=== PATIENT | male | born 1925 | race Caucasian/White ===

== ENCOUNTER → 2016-12-26 | Outpatient (CLI) | payer MEDICARE, BC ==
[2016-12-26 17:48] LABS: ANION GAP 9 (5-19); BLOOD UREA NITROGEN 19 mg/dL (7-20); CALCIUM 9.1 mg/dL (8.4-10.2); CARBON DIOXIDE 29 mmol/L (22-30); CHLORIDE 96 mmol/L (98-107); CREATININE RESULT 1.08 mg/dL (0.52-1.25); GLUCOSE 84 mg/dL (75-110); POTASSIUM 5.5 mmol/L (3.6-5.0)
== END ==
LOC: OD 16:21
PROVIDERS: ATTEND Family Medicine
DX: E87.5 Hyperkalemia (principal)
CPT/HCPCS: 36415; 80048

== ENCOUNTER 2017-02-11 18:57 | Inpatient (IN) | payer MEDICARE, BC ==
--- NOTE | 2017-02-11 20:24 | ER Document Report ---
ED Fall - General Mode of Arrival: Wheelchair Information source: Patient, Relative - Daughter and son TRAVEL OUTSIDE OF THE [place] IN LAST 30 DAYS: No - HPI Occurred: Just prior to arrival - Refer to HPI notes Context: Fell from standing <MARIA ELENA WHITE - Last Filed: 02/11/17 23:54> <JOVANNY COOK - Last Filed: 02/12/17 03:25> - General Chief Complaint: Headache Stated Complaint: WELLNESS CHECK Time Seen by Provider: 02/11/17 19:50 Notes: Patient is an 89-year-old male presenting to the emergency department for a headache. Patient did see his primary care physician Dr. Hopper today was going to order an outpatient CT of the head, gave him a new medication for his constipation, and wanted him to see his shipboard intelligence analyst Dr. Martinez. Patient has had some gradual chronic confusion and disorientation over the last several months. Patient has been taking Metamucil and MiraLAX for his bowels. Patient did feel sick and nauseous on Saturday and on Saturday he had a fall in his house. Patient was starting to walk up a ramp and he fell backwards. Patient states he does not remember how he fell but he does remember falling and he is able to pick himself up from the fall and walk into the house. Patient had some swelling to his neck at this time and [facility] as well as a CT of his neck on Saturday. Daughter and son state the patient did not receive any type of head CT or other imaging. Daughter is concerned the patient has been very fatigued as well lately and also states that his PCP was concerned for possible dehydration. Patient complains of headache since his fall as well as some nausea. Patient is on Plavix for 2 previous stents. Patient has no known drug allergies. (MARIA ELENA WHITE) - Related data Allergies/Adverse Reactions: No Known Allergies Allergy (Verified 09/07/14 17:33) Past Medical History - General Information source: Patient - Social History Smoking Status: Unknown if Ever Smoked Family History: None Patient has suicidal ideation: No Patient has homicidal ideation: No - Past Medical History Cardiac Medical History: Reports: Hx Hypertension Neurological Medical History: Reports: Hx Cerebrovascular Accident - MEMORY ISSUES, Hx Migraine GI Medical History: Reports: Hx Gastroesophageal Reflux Disease, Hx Ulcer - YEARS AGO Surgical Hx: Negative <MARIA ELENA WHITE - Last Filed: 02/11/17 23:54> Review of Systems - Review of Systems Constitutional: See HPI, Malaise, Weakness EENT: No symptoms reported Cardiovascular: No symptoms reported Respiratory: No symptoms reported Gastrointestinal: No symptoms reported Genitourinary: No symptoms reported Male Genitourinary: No symptoms reported Musculoskeletal: See HPI Skin: No symptoms reported Hematologic/Lymphatic: No symptoms reported Neurological/Psychological: See HPI, Confusion, Weakness, Headaches -: Yes All other systems reviewed and negative <MARIA ELENA WHITE - Last Filed: 02/11/17 23:54> Physical Exam - Vital signs Interpretation: Hypertensive <MARIA ELENA WHITE - Last Filed: 02/11/17 23:54> <JOVANNY COOK - Last Filed: 02/12/17 03:25> - Vital signs Vitals: Temp Pulse BP Pulse Ox 97.6 F 62 177/77 H 97 02/11/17 19:07 02/11/17 19:07 02/11/17 19:07 02/11/17 19:07 - Notes Notes: GENERAL: Alert, interacts well. Mild distress. HEAD: Normocephalic, atraumatic. EYES: Appear normal. Pupils equal, round, and reactive to light. ENT: Moist mucus membranes, tongue midline. NECK: Full range of motion. Supple. Trachea midline. LUNGS: Clear to auscultation bilaterally, no wheezes, rales, or rhonchi. No respiratory distress. HEART: Regular rate and rhythm. No murmurs, gallops, or rubs. ABDOMEN: Soft, non-tender. Non-distended. Normal bowel sounds. EXTREMITIES: Moves all 4 extremities spontaneously. Normal strength. No edema. NEUROLOGICAL: Alert and oriented x3. Normal speech. No focal neurological deficits. GSC 15. PSYCH: Normal affect, normal mood. SKIN: Warm, dry, normal turgor. No rashes or lesions noted. (MARIA ELENA WHITE) Course - Laboratory Result Diagrams: 02/11/17 21:45 02/11/17 21:45 - Consults Dr. Hurst Time consulted: 22:40 <MARIA ELENA WHITE - Last Filed: 02/11/17 23:54> - Laboratory Result Diagrams: 02/11/17 21:45 02/12/17 02:05 <JOVANNY COOK - Last Filed: 02/12/17 03:25> - Re-evaluation Re-evalutation: 02/11/17 23:21 Presents emergency department his is also patient and his entire family is here including his daughter and sons who are their caregivers at home. That he fell last week walking up the 's wheelchair ramp backwards. They went to [place] or so where they did a x-ray of the cervical spine on a follow-up on Saturday and did a CT of the cervical spine which did not show any acute fractures. The family did not understand why he has had a headache ever since why they did not CT his head. Patient has progressive confusion sounds like dementia over the last year and a half. He states that he is often forgetful and that has not changed recently. In addition to that they state that chronic headaches and takes Fioricet for that. They said he has been eating and drinking very well at home for quite some time. On examination he is awake alert he has a GCS of 15 no neurological deficits or external signs of trauma to the head mucous murmurs are dry heaves thin appearing. CT of the head is negative electrolyte abnormality serum sodium is 120 last time he is here is 35. He is given IV fluids family states intermittent dizziness increased confusion according to them given the fact the serum sodium and chloride being low IV fluids dehydration and hyponatremia and admission to the hospital. 02/12/17 00:00 (JOVANNY COOK) - Vital Signs Vital signs: Temp Pulse Resp BP Pulse Ox 97.6 F 63 150/70 H 99 02/11/17 19:07 02/12/17 00:51 02/12/17 01:01 02/12/17 00:51 - Laboratory Laboratory results interpreted by me: 02/11/17 02/11/17 02/11/17 21:45 21:45 21:45 RBC 3.55 L Hgb 11.7 L Hct 32.8 L Monocytes % 13.7 H Sodium 120.7 L* Chloride 89 L Serum Osmolality Alkaline Phosphatase 132 H Total Protein 6.1 L Albumin 3.4 L Urine Osmolality 02/11/17 02/12/17 21:45 01:00 RBC Hgb Hct Monocytes % Sodium Chloride Serum Osmolality 264 L Alkaline Phosphatase Total Protein Albumin Urine Osmolality 129 L - Consults Dr. Hurst Reason for consultation: 02/11/17 22:[address] Hurst to discuss patient, he will call back. 02/11/17 23:[address] Hurst at this time, discussed patient with him, he will accept the patient for admission. (MARIA ELENA WHITE) Critical Care Note - Critical Care Note Total time excluding time spent on procedures (mins): 55 <JOVANNY COOK - Last Filed: 02/12/17 03:25> Discharge <MARIA ELENA WHITE - Last Filed: 02/11/17 23:54> - Discharge Admitting Provider: Hospitalist Unit Admitted: Telemetry <JOVANNY COOK - Last Filed: 02/12/17 03:25> - Discharge Clinical Impression: Acute hyponatremia, report of altered mental status, dehydration with poor appetite Condition: Stable Disposition: ADMITTED OBSERVATION Scribe Attestation: 02/11/17 23:41 I personally performed the services described in the documentation reviewed the documentation recorded by my scribe in my presence and it accurately and completely records my words and actions (JOVANNY COOK) Scribe Documentation - Scribe Written by Scribe:: Latha Lu 02/11/2017 [id number] acting as scribe for :: Trevon <MARIA ELENA WHITE - Last Filed: 02/11/17 23:54>
--- NOTE | 2017-02-11 21:15 | RADIOLOGY REPORT (SQ) ---
EXAM DESCRIPTION: CT HEAD WITHOUT COMPLETED DATE/TIME: 02/11/2017 8:52 pm REASON FOR STUDY: fall last week headache COMPARISON: August 2014 TECHNIQUE: Axial images acquired through the brain without intravenous contrast. Images reviewed wi th bone, brain and subdural windows. Images stored on PACS. All CT scanners at this facility use dose modulation, iterative reconstruction, and/or weight based d osing when appropriate to reduce radiation dose to as low as reasonably achievable (ALARA). [facility]: Dose Right [facility]: CareDose [facility]: Dose Right [facility]: Teradose 4D [facility]: Smart [employer] RADIATION DOSE: Up-to-date CT equipment and radiation dose reduction techniques were employed. CTDIv ol: 49.0 mGy. DLP: 783 mGy-cm.mGy. LIMITATIONS: None. FINDINGS: VENTRICLES: Prominent. CEREBRUM: No masses. No hemorrhage. No midline shift. Areas of low density in the white matter mos t likely due to chronic micro-vascular ischemic change. No evidence for acute infarction. CEREBELLUM: No masses. No hemorrhage. No alteration of density. No evidence for acute infarction. EXTRAAXIAL SPACES: Age-related involutional change. No fluid collections. No masses. ORBITS AND GLOBE: No intra- or extraconal masses. Normal contour of globe without masses. CALVARIUM: No fracture. PARANASAL SINUSES: No fluid or mucosal thickening. SOFT TISSUES: No mass or hematoma. OTHER: No other significant finding. IMPRESSION: CHRONIC CHANGES OF ATROPHY AND MICROVASCULAR ISCHEMIA. NO ACUTE PROCESS. TECHNICAL DOCUMENTATION: JOB ID: [id number] Quality ID # [id number]: Final reports with documentation of one or more dose reduction techniques (e.g., Au tomated exposure control, adjustment of the mA and/or kV according to patient size, use of iterative reconstruction technique) 2010 [employer]- All Rights Reserved
[2017-02-11 21:59] LABS: ABSOLUTE EOSINOPHILS # (AUTO) 0.3 10^3/uL (0.0-0.6); ABSOLUTE LYMPHOCYTES (AUTO) 0.9 10^3/uL (0.5-4.7); ABSOLUTE MONOCYTES (AUTO) 0.8 10^3/uL (0.1-1.4); ABSOLUTE NEUT (AUTO) 3.8 10^3/uL (1.7-8.2); BASOPHILS % (AUTO) 0.8 % (0-2); HEMATOCRIT 32.8 % (37.9-51.0); HEMOGLOBIN 11.7 g/dL (13.5-17.0); HGB HCT DIFFERENCE 2.3; LYMPHOCYTES % (AUTO) 15.7 % (13-45); MEAN CORPUSCULAR HEMOGLOBIN 32.8 pg (27.0-33.4); MEAN CORPUSCULAR HGB CONC 35.6 g/dL (32.0-36.0); MEAN CORPUSCULAR VOLUME 92 fl (80-97); MONOCYTES % (AUTO) 13.7 % (3-13); RED BLOOD COUNT 3.55 10^6/uL (4.35-5.55); RED CELL DISTRIBUTION WIDTH 13.6 % (11.5-14.0); SEGMENTED NEUTROPHILS % (AUTO) 64.8 % (42-78); WHITE BLOOD COUNT 5.8 10^3/uL (4.0-10.5)
[2017-02-11 22:11] LABS: BLOOD UREA NITROGEN 12 mg/dL (7-20); CALCIUM 8.4 mg/dL (8.4-10.2); CARBON DIOXIDE 24 mmol/L (22-30); CHLORIDE 89 mmol/L (98-107); CREATININE RESULT 0.87 mg/dL (0.52-1.25); GLUCOSE 109 mg/dL (75-110); POTASSIUM 4.2 mmol/L (3.6-5.0)
[2017-02-11 22:15] LABS: ANION GAP 8 (5-19)
[2017-02-11 22:19] LABS: SODIUM 120.7 mmol/L (137-145)
[2017-02-11] MEDS ORDERED: NORMAL SALINE 1000 ML 1,000 ML IV ONE ×2 (22:28→23:38)
[2017-02-11] MEDS ORDERED: NORMAL SALINE 1000 ML 1,000 ML IV PRN (23:40)
[2017-02-12 00:27] LABS: ADD ON TESTING BLD IN LAB ACKNOWLEDGE
[2017-02-12 00:43] LABS: ALANINE AMINOTRANSFERASE 22 U/L (21-72); ALBUMIN 3.4 g/dL (3.5-5.0); ALKALINE PHOSPHATASE 132 U/L (38-126); ASPARTATE AMINO TRANSFERASE 24 U/L (17-59); BILIRUBIN,DIRECT 0.3 mg/dL (0.0-0.4); BILIRUBIN,TOTAL 0.5 mg/dL (0.2-1.3); TOTAL PROTEIN 6.1 g/dL (6.3-8.2)
[2017-02-12] MEDS ORDERED: PROMETHAZINE HCL 25 MG TABLET PO PRN (01:30)
[2017-02-12] MEDS ORDERED: MAGNESIUM HYDROXIDE SUSP 30 ML UDCUP PO PRN (01:30)
[2017-02-12 01:38] LABS: APPEARANCE,URINE CLEAR; BILIRUBIN,URINE NEGATIVE (NEGATIVE); GLUCOSE, URINE NEGATIVE (NEGATIVE); KETONES,URINE NEGATIVE (NEGATIVE); LEUKOCYTE ESTERASE,URINE NEGATIVE (NEGATIVE); NITRITE,URINE NEGATIVE (NEGATIVE); PROTEIN,URINE NEGATIVE (NEGATIVE); URINE SPECIFIC GRAVITY 1.002; UROBILINOGEN,URINE NEGATIVE mg/dL (<2.0)
--- NOTE | 2017-02-12 02:10 | PDOC H&P ---
History of Present Illness Admission Date/PCP: 02/11/17 23:52 SHRADDHA HO DO Patient complains of: Nausea, headache History of Present Illness: SHARON FUNEZ is a 89 year old male, with known long-standing migraine headaches, for which he reportedly takes Fioricet, along with known coronary artery disease, having suffered an MS in 2015, with stent implant 2 at that time, mild reflux, prostatic hypertrophy, hyperlipidemia, mild anxiety and depression, without suicidal or homicidal ideation, occasional dysphagia to both pills and food, with primary care provider aware of same, along with history of skin cancer, who presents to the emergency room for evaluation of above complaints. Fell backwards last Saturday in his house. Was seen at a medical facility afterwards, with CT scan of his neck showing no obvious injury. Since that time, he has had persistence of a headache, along with nausea but no vomiting. No fever or chills. Chronic constipation. Fair appetite. Occasional chest pain, which is been ongoing apparently for some time now. Brief episode earlier on 11 February. Chest pain-free at present. Recent history also remarkable for gradually progressive chronic confusion and disorientation. No use of tobacco, alcohol, or illicit drugs. Prior stroke which is left him with "memory issues." No seizure history. Patient has been discussed with emergency room physician who evaluated the patient. Patient is oriented to the fact that he is in our hospital, stating he is here because of nausea and headache, was not aware of the date; kept trying to say he was in the 1900s. He is able to provide little history in terms of acute or chronic events, review of systems, personal habits, family history, etc. 2 sons are present at his side, with his approval, and are helpful and informative. old inpatient records are reviewed. Hospitalized on our service the third through November with transfer diagnoses including non-ST elevation MS. Subsequently received 2 stents. Transfer summary reviewed. Admitted to our service September 072014 for a stroke involving the left parietal and occipital lobes. History and physical reviewed.. Dictation via voice recognition software. Laboratory results are listed in [employer] and are reviewed. X-ray summary results are listed below, with full report(s) reviewed. . EKG pending. Social history/personal habits: . Lives with . Retired. Close family follow-up. No use of alcohol tobacco or illicit drugs. No known drug allergies. Home medications initially autopopulated into [employer] may not accurately reflect patient's true medications, dosages, and/or frequencies. environmental field technician to reconcile medications. Unfortunately, patient not able to provide any information related to medications/dosages/frequencies. REVIEW OF SYSTEMS: Constitutional: No fever or chills. Eyes: Wears glasses. ENT: See history and present illness. Partial hearing loss. Pulmonary: No current complaints. Cardiovascular: See history and present illness. Gastrointestinal: See history and present illness. Skin: No current complaints, including rashes. Hematologic: Easy bruising. Neurologic: See history and present illness. Musculoskeletal: Joint pain from arthritis. Psychiatric: Anxiety and depression. Denies suicidal or homicidal ideation. Endocrine: No current complaints, including polyuria. Genitourinary: No current complaints, including dysuria. PHYSICAL EXAMINATION: Neither height nor weight are recorded on the chart. Temperature 97.6. Respirations are 14 and unlabored. 99% saturation on room air. Pulse 66 and regular. Blood pressure 150/70. Thin otherwise well-developed elderly male appearing approximately his stated age. Appears somewhat fatigued. Occasionally complaining of headache. Cooperative. 2 sons are present at his side; patient approves. Skin is warm and dry. No grossly obvious evidence of rash in areas of skin examined. No subcutaneous nodules palpated. ENT: Hearing grossly normal to normal conversation. Tongue midline on protrusion pink and moist. Eyes: No scleral icterus. Pupils equal and reactive to light at 4 mm. [place] conjunctivae. No raccoon eyes. Neck is supple and nontender to gentle active range of motion and palpation. Midline trachea. No palpable thyroid nodule mass enlargement or tenderness. Lymphatic: No palpable cervical or clavicular nodes. Neck and lymphatic exams limited by patient body habitus. Psychiatric: Intermittently somewhat confused answers. Oriented to location and why here. Lungs: Auscultation reveals clear and equal breath sounds bilaterally. No use of accessory respiratory muscles. Cardiovascular: Heart regular rate and rhythm, without gallop murmur or rub. No carotid or abdominal aortic bruits. No ankle or pedal edema. Faintly palpable dorsalis pedis pulses. Abdomen:soft nontender with positive bowel sounds. No upper abdominal mass or organomegaly palpated. Extremities: Hands and feet are warm and dry. No calf tenderness to compression. No grossly obvious visual evidence of calf swelling. Gentle manipulation of upper and lower extremities fails to reveal any obvious evidence of injury or instability to involved major joints. Neurologic: Cranial Nerves II through XII are grossly intact. Light touch intact at face, upper and lower extremities. Motor function of major muscle groups upper and lower extremities 5 over 5 and symmetric. Patellar reflexes absent. Absent Babinski. No nystagmus. Past Medical History Cardiac Medical History: Reports: Coronary Artery Disease, Myocardial Infarction , Hyperlipidema, Hypertension Denies: Atrial Fibrillation, DVT, Pulmonary Embolism Pulmonary Medical History: Denies: Asthma, Chronic Obstructive Pulmonary Disease (COPD), Sleep Apnea EENT Medical History: Reports: Eyes - Glasses, Ears - Partial hearing loss, Other - Intermittent dysphagia to pills and food; primary care provider aware, according to sons. Neurological Medical History: Reports: Ischemic CVA - Subsequent memory issues, Migraine Denies: Hemorrhagic CVA, Seizures Endocrine Medical History: Denies: Diabetes Mellitus Type 1, Diabetes Mellitus Type 2, Hyperthyroidism, Hypothyroidism Renal/ Medical History: Reports: Other - Prostatic hypertrophy Malignancy Medical History: Reports: Skin Cancer GI Medical History: Reports: Gastroesophageal Reflux Disease Denies: Cirrhosis, Hepatitis, Hiatal Hernia, Peptic Ulcer Disease Musculoskeltal Medical History: Reports: Arthritis Psychiatric Medical History: Reports: Depression, General Anxiety Disorder Denies: Alcohol Dependency, Substance Abuse, Tobacco Dependency Hematology: Reports: Anemia, Other - Easy bruising Infectious Medical History: Denies: Hepatitis B, Hepatitis C Past Surgical History Past Surgical History: Reports: Coronary Stent - 22014, Other - Hemorrhoidectomy Social History Information Source: Patient, Relative - 2 sons, Emergency Med Personnel, [facility] Records Lives with: Spouse/Significant other Smoking Status: Unknown if Ever Smoked Frequency of Alcohol Use: None Hx Recreational Drug Use: No Drugs: None Hx Prescription Drug Abuse: No - Advance Directive Resuscitation Status: Do Not Resuscitate Surrogate healthcare decision maker:: Children Family History Family History: None Parental Family History Reviewed: Yes - Father of stroke, mother with Alzheimer's Children Family History Reviewed: Yes - 2 children with cancer Sibling(s) Family History Reviewed.: Yes - Medication/Allergy Home Medications: Atorvastatin Calcium 40 mg PO QHS 02/12/17 Butalb/Acetaminophen/Caffeine [Dhlckm-Qyfzbzci-Byql 50-325-40] 1 each PO Q6 07/31 Clobetasol Propionate 1 applic TOP ASDIR PRN 02/12/17 Clopidogrel Bisulfate [Clopidogrel] 75 mg PO DAILY 02/12/17 Omeprazole 40 mg PO DAILY 02/12/17 Amlodipine Besylate [Norvasc 5 mg Tablet] 5 mg PO DAILY #30 tablet 02/15/17 Megestrol Acetate [Megace Dori 400 mg/10 ml Udcup] 400 mg PO DAILY #300 ml 02/15 Mirtazapine [Remeron 15 mg Tablet] 7.5 mg PO QHS #30 tablet 02/15/17 Allergies/Adverse Reactions: No Known Allergies Allergy (Verified 09/07/14 17:33) Physical Exam Vital Signs: Temp Pulse Resp BP Pulse Ox 97.6 F 63 150/70 H 99 02/11/17 19:07 02/12/17 00:51 02/12/17 01:01 02/12/17 00:51 Results Impressions: Head CT 02/11/17 20:16 IMPRESSION: CHRONIC CHANGES OF ATROPHY AND MICROVASCULAR ISCHEMIA. NO ACUTE PROCESS. Assessment & Plan - Diagnosis (1) DNR (do not resuscitate) Is this a current diagnosis for this admission?: YesPlan: Implications of DO NOT RESUSCITATE/DO NOT INTUBATE status discussed with patient and 2 sons. Discussed in layperson's terms. Implications understood. Patient and 2 sons are the health care decision makers. Sons' conversations are lucid and appropriate. Patient and 2 sons desire DO NOT RESUSCITATE/DO NOT INTUBATE status, as has been the case in the past, including at the time of his transfer for non-STEMI in 2014. Will honor their wishes. (2) Chest pain Qualifiers: Chest pain type: unspecified Qualified Code(s): R07.9 - Chest pain, unspecified Is this a current diagnosis for this admission?: YesPlan: Intermittent episodes for some time now. Serial troponins. Repeat EKG. No outward evidence of acute coronary syndrome. (3) Hyponatremia Is this a current diagnosis for this admission?: YesPlan: Uncertain cause. Normal saline at 75/h. Serial chemistry. Serum osmolarity. Urine sodium and osmolarity. I have strongly encouraged patient not to get out of bed without notifying staff , to avoid a fall with injury. Knee high SCDs for DVT prophylaxis, along with subcutaneous heparin. 2 sons understand patient's underlying confusion may very well worsen while he is in the hospital. Suspect his hyponatremia may be contributing to this. Impression and plans were discussed with patient and 2 sons, all of whom concur. Time spent in evaluation and management of patient: 72 minutes. (4) Confusion Is this a current diagnosis for this admission?: Yes (5) Migraine Qualifiers: Migraine type: unspecified Status migrainosus presence: without status migrainosus Intractability: not intractable Qualified Code(s): G43.909 - Migraine, unspecified, not intractable, without status migrainosus Is this a current diagnosis for this admission?: YesPlan: As needed pain medication. (6) BPH (benign prostatic hyperplasia) Qualifiers: Lower urinary tract symptom presence: unspecified whether lower urinary tract symptoms present Qualified Code(s): N40.0 - Benign prostatic hyperplasia without lower urinary tract symptoms Is this a current diagnosis for this admission?: YesPlan: Resume home medications as appropriate once these have been determined and reviewed. (7) Essential hypertension Is this a current diagnosis for this admission?: YesPlan: Resume home medications as appropriate once these have been determined and reviewed. (8) HLD (hyperlipidemia) Qualifiers: Hyperlipidemia type: unspecified Qualified Code(s): E78.5 - Hyperlipidemia, unspecified Is this a current diagnosis for this admission?: YesPlan: Resume home medications as appropriate once these have been determined and reviewed. (9) Stented coronary artery Is this a current diagnosis for this admission?: YesPlan: Resume home medications as appropriate once these have been determined and reviewed. - Time Time Spent: 50 to 70 Minutes Anticipated discharge: Home Within: within 48 hours
[2017-02-12 02:30] LABS: ANION GAP 7 (5-19); BLOOD UREA NITROGEN 12 mg/dL (7-20); CARBON DIOXIDE 25 mmol/L (22-30); CHLORIDE 95 mmol/L (98-107); GLUCOSE 85 mg/dL (75-110); POTASSIUM 4.1 mmol/L (3.6-5.0); SODIUM 126.9 mmol/L (137-145)
[2017-02-12] MEDS: OXYCODONE HCL IR 5 MG TABLET PO PRN (04:11)
[2017-02-12] MEDS: DEXTROSE 5%-WATER 1000 ML 1,000 ML IV PRN ×2 (04:12→17:42)
[2017-02-12 07:06] LABS: ANION GAP 8 (5-19); BLOOD UREA NITROGEN 10 mg/dL (7-20); CALCIUM 8.5 mg/dL (8.4-10.2); CARBON DIOXIDE 25 mmol/L (22-30); CHLORIDE 96 mmol/L (98-107); CREATININE RESULT 0.86 mg/dL (0.52-1.25); GLUCOSE 98 mg/dL (75-110); POTASSIUM 4.2 mmol/L (3.6-5.0); SODIUM 128.9 mmol/L (137-145)
--- NOTE | 2017-02-12 08:09 | EKG REPORT ---
SEVERITY:- OTHERWISE NORMAL ECG - SINUS RHYTHM VENTRICULAR PREMATURE COMPLEX LOW VOLTAGE IN FRONTAL LEADS : Confirmed by: Solitario Varner MD 12-Feb-2017 08:09:01
--- NOTE | 2017-02-12 08:09 | EKG REPORT ---
SEVERITY:- BORDERLINE ECG - SINUS RHYTHM BORDERLINE T ABNORMALITIES, ANT-LAT LEADS : Confirmed by: Solitario Varner MD 12-Feb-2017 08:08:50
--- NOTE | 2017-02-12 10:11 | Physician Advisory Note ---
Physician Advisor ProgressNote .: Pursuant to the plan for [facility], I have reviewed the medical record for this patient. Physician Advisor Statement: 1. Please document explicitly the reason(s) pt can't be sent home later today. 2. Likely reason for the acute hyponatremia? Status: This Medicare pt was brought in as Outpt Obs for hyponatremia. Na 120.7, w/baseline Na 134 on 12/26/16. (+)AMS/weakness associated with this severe hyponatremia. After 2L IVF in ED, then 75ml/hr, w/serial BMPs, Na up to 128.9 so far thi AM - still not yet back to baseline. Giving IVF slowly after ED given given 2L relatively quickly, attending wanting to avoid producing brain swelling from correcting Na too quickly. Attending expects pt to require at least a 2nd MN in hospital with continued close monitoring of NA & continued cautious IVF. Attending has ordered repeat labs through 8/2 AM and changed status to Inpt. Appears appropriate for Inpatient status. Thanks! CK
--- NOTE | 2017-02-12 10:38 | PROGRESS NOTE E ---
Progress Note NAME: SHARON FUNEZ : 1925 AGE: 89Y DATE: 02/12/2017 ROOM: 428 SUBJECTIVE: The patient is sitting in bed. Had a meeting with the patient's son who was present at the bedside and active in the patient's care. Apparently the patient has had an ever deescalating appetite. Discussed risks and benefits of appetite stimulants and they have elected to proceed with this. The patient's sodium has improved. His confusion also has improved but he still is not at baseline according to the son. The patient has been afebrile. His blood pressures have been in a decent range and the patient does not voice any other concerns at this time. REVIEW OF SYSTEMS: Rest of the review of systems negative. MEDICATIONS: Have been reviewed. OBJECTIVE: GENERAL: The patient is an 89-year-old male who is awake, alert, and oriented to person, place, time, and situation. He is verbal, conversational, and does not appear to be in acute distress. VITAL SIGNS: Temperature 98.2, pulse 55, respirations 16, blood pressure 158/70, oxygen saturation is 100% on room air. SKIN: Warm and dry. No rash. Not diaphoretic. HEENT: Pupils equal, round, reactive to light and accommodation. Conjunctivae are pink. No JVP. CARDIOVASCULAR: Heart is regular with no murmur or rub. CHEST: Clear, symmetrical, unlabored. ABDOMEN: Soft, nontender, nondistended. BACK: No CVA tenderness or sacral edema. EXTREMITIES: No clubbing, cyanosis, edema. PSYCHIATRIC: Flat affect. DIAGNOSTICS: Lab values are as follows: Hematology obtained on 02/11/2017: WBCs are 5.8, hemoglobin is 11.7, hematocrit is 32.8, platelet count is 182,000. Chemistry obtained on 02/12/2017: Sodium is 128, potassium is 4.2, chloride is 96, carbon dioxide is 25, BUN 10, creatinine is 0.86, glucose 98, calcium is 8.5, troponin is 0.013. IMPRESSION AND PLAN: 1. HYPONATREMIA. Uncertain of exact etiology of this. It does appear that the patient does have hypovolemic hyponatremia given from poor p.o. intake. The patient is not on any known significant offending agents. Repeat sodium is pending. Will adjust IV fluids accordingly and encourage p.o. intake. 2. POOR APPETITE. Have discussed risks versus benefits with the patient and family. Will add Remeron as well as Megace and follow. 3. ANEMIA MOST LIKELY IRON DEFICIENCY FROM POOR P.O. INTAKE. Overall hemoglobin is stable. Can defer workup to an outpatient setting. 4. HYPERTENSION. Patient's blood pressures are just slightly elevated but will continue to hold the patient's home blood pressure medications in an effort to give us some blood pressure to work with for now. 5. DVT PROPHYLAXIS. Will continue subcutaneous heparin. DISPOSITION: The patient is a DO NOT RESUSCITATE/DO NOT INTUBATE. Pending patient's symptomatology and diagnostic findings, will reevaluate in the a.m. The patient is inpatient. Given the patient's hyponatremia and need for volume resuscitation, the patient's expected length of stay would surpass 2 midnights. Time spent on this followup including assessment, plan, physical examination, patient education, and family meeting at the bedside is 35 minutes. DICTATING PHYSICIAN: GARY MILLS NP [id number] PHY#: [id number] ID: [id number] JOB#: [id number] ACCT: [id number] cc: >
[2017-02-12 11:09] LABS: ANION GAP 7 (5-19); BLOOD UREA NITROGEN 9 mg/dL (7-20); CALCIUM 8.5 mg/dL (8.4-10.2); CARBON DIOXIDE 26 mmol/L (22-30); CHLORIDE 96 mmol/L (98-107); CREATININE RESULT 0.93 mg/dL (0.52-1.25); GLUCOSE 72 mg/dL (75-110); POTASSIUM 3.9 mmol/L (3.6-5.0)
[2017-02-12] MEDS: HEPARIN SOD (PORCINE) 5,000 UNIT/ML 1 ML SYRINGE SUBCUT SCH ×2 (11:51→21:32)
[2017-02-12] MEDS: MEGESTROL ACETATE SUSP 400 MG/10 ML UDCUP PO SCH (11:51)
[2017-02-12] MEDS: BUTALB/ACETAMINOPHEN/CAFFEINE 1 TAB EACH PO SCH ×2 (11:52→18:19)
[2017-02-12] MEDS: DOCUSATE SODIUM 100 MG CAPSULE PO SCH ×2 (11:52→18:19)
[2017-02-12 14:31] LABS: ANION GAP 8 (5-19); BLOOD UREA NITROGEN 11 mg/dL (7-20); CALCIUM 8.6 mg/dL (8.4-10.2); CARBON DIOXIDE 24 mmol/L (22-30); CHLORIDE 95 mmol/L (98-107); CREATININE RESULT 0.83 mg/dL (0.52-1.25); GLUCOSE 101 mg/dL (75-110); POTASSIUM 4.7 mmol/L (3.6-5.0); SODIUM 126.6 mmol/L (137-145)
[2017-02-12] MEDS: ONDANSETRON 4 MG TAB.RAPDIS PO PRN (17:41)
[2017-02-12] MEDS: MIRTAZAPINE 15 MG TABLET PO SCH (21:32)
[2017-02-12] MEDS: ATORVASTATIN CALCIUM 40 MG TABLET PO SCH (21:32)
[2017-02-13] MEDS: ACETAMINOPHEN 325 MG TABLET PO PRN ×2 (01:05→16:29)
[2017-02-13] MEDS: BUTALB/ACETAMINOPHEN/CAFFEINE 1 TAB EACH PO SCH ×5 (01:06→22:01)
[2017-02-13 05:08] LABS: ANION GAP 7 (5-19); BLOOD UREA NITROGEN 17 mg/dL (7-20); CALCIUM 8.3 mg/dL (8.4-10.2); CARBON DIOXIDE 24 mmol/L (22-30); CHLORIDE 94 mmol/L (98-107); CREATININE RESULT 0.94 mg/dL (0.52-1.25); GLUCOSE 84 mg/dL (75-110); POTASSIUM 4.6 mmol/L (3.6-5.0); SODIUM 124.8 mmol/L (137-145)
[2017-02-13] MEDS: LANSOPRAZOLE 30 MG TAB.RAP.DR PO SCH (05:47)
[2017-02-13] MEDS ORDERED: BISACODYL 10 MG SUPP.RECT PR ONE (08:12)
[2017-02-13] MEDS ORDERED: LACTULOSE SYRUP 20 GM/30 ML UDCUP PO ONE (08:12)
--- NOTE | 2017-02-13 08:43 | PROGRESS NOTE E ---
Progress Note NAME: SHARON FUNEZ : 1925 AGE: 89Y DATE: 02/13/2017 ROOM: 428 SUBJECTIVE: The patient is currently lying in bed. The patient is complaining of significant constipation and is completely preoccupied with this. The patient denies any nausea, vomiting, diarrhea. No shortness of breath, dizziness, chest pain. No fevers, chills. He does admit to some abdominal discomfort. When questioned if the patient's appetite is improved with the stimulant, we are uncertain of this. The patient is to have a swallow evaluation today, and the patient does not voice any other concerns at this time. REVIEW OF SYSTEMS: Rest of review of systems negative. MEDICATIONS: Medications have been reviewed. OBJECTIVE: GENERAL: The patient is an 89-year-old male who is awake, alert. He is oriented to person, place, time, and situation. He is verbal, conversational, does not appear to be in acute distress. VITAL SIGNS: Temperature is 98.3, pulse 58, respirations 19, blood pressure is 158/76, oxygen saturation is 100% on room air. SKIN: Warm and dry. No rash. Not diaphoretic. HEENT: Pupils equal, round, and reactive to light and accommodation. Conjunctiva is pink. There is no JVP. CARDIOVASCULAR SYSTEM: Heart is regular. There is no murmur or rub. CHEST: Clear, symmetrical, unlabored. BACK: No CVA tenderness or sacral edema. EXTREMITIES: No clubbing, cyanosis, edema. PSYCHIATRIC: Appropriate affect, pleasant mood. DIAGNOSTICS: Lab values are as follows: Hematology obtained on 02/11/2017: WBCs are 5.8, hemoglobin is 11.7, hematocrit is 32.8, platelet count is 182,000. Chemistry obtained on 02/13/2017: Sodium is 144, potassium 4.6, chloride is 94, carbon dioxide 24, BUN 17, creatinine is 0.94, glucose 84, calcium is 8.3. IMPRESSION AND PLAN: 1. HYPONATREMIA, UNCERTAIN EXACT ETIOLOGY OF THIS. MOST LIKELY THIS IS HYPOVOLEMIC HYPONATREMIA FROM POOR P.O. INTAKE. The patient is not on any significant offending agents. Will repeat sodium and resume patient's IV fluids. Encouraged p.o. intake. 2. POOR APPETITE. I discussed the risks and benefits to the patient and the family and elected to proceed with Remeron and Megace. Will follow. The patient was also seen by speech therapy and will undergo swallow evaluation today. 3. ANEMIA, MOST LIKELY IRON DEFICIENCY FROM POOR P.O. INTAKE. Overall, hemoglobin is stable. Can defer this workup to outpatient setting. 4. HYPERTENSION. Blood pressures have been elevated. Will start the patient on blood pressure medication and follow. 5. CONSTIPATION. Will give a suppository now as well as a dose of lactulose. 6. DVT PROPHYLAXIS. Will continue subcu heparin. DISPOSITION: The patient is a DNR/DNI. Pending patient's symptomatology and diagnostic findings, will re-evaluate in the a.m. Time spent on this followup including assessment, plan, physical examination, patient education, and family meeting is 25 minutes. DICTATING PHYSICIAN: GARY MILLS NP [id number] PHY#: [id number] ID: [id number] JOB#: [id number] ACCT: [id number] cc: >
--- NOTE | 2017-02-13 09:02 | ST Inp Modified Barium Swallow ---
Medical Diagnosis - Medical Diagnoses Medical Diagnosis Description & ICD-10 Code(s): globus sensation - ICD-10 Tx Diagnosis Coding (1) Dysphagia, pharyngoesophageal phase ICD-10 Code(s): R13.14 - DYSPHAGIA, PHARYNGOESOPHAGEAL PHASE Inpatient MBS - General Date: 02/13/17 Date of Onset: 02/11/17 - History History Obtained From: Patient - per EMR -: Medical - FOURDRINIER OPERATOR reviewed physician's notes; significant for current diagnoses of hyponatremia, poor appetite, anemia, hypertension, decreased appetite. When asked about coughing or choking, patient explained he had sore throat; FOURDRINIER OPERATOR unable to redirect to answering questions about coughing or choking. Son reports this happens frequently with eating and that "he has a hard time". Patient-family deny pneumonia but report bronchitis frequently. Endorse reflux. Unsure if taking medication for reflux. MBSS completed due to pt reports of globus sensation. Pt also reports was told by MD had "narrow throat" and would benefit from "getting stretched". Medications: Medications Reviewed Allergies: Refer to medical record - Subjective Current Nutritional Means: PO Current PO Diet: Regular Current Symptoms: Poor intake, c/o Globus sensation Pain: 0/5 - Objective Assessment: Upright, Left Lateral - Food Trials Food Trials Used: Thin liquids, [place] thick liquids, Pureed, Regular The Patient: fed by ST - Assessment Labial Function: Within Functional Limits Lingual Function: Within Normal Limits Mandibular Function: Within Functional Limits Dentition: Partial Velo-Pharyngeal Function: Unremarkable Laryngeal Function: Volitional Cough, Volitional Swallow - Pharyngeal Stage Initiation of Pharyngeal Stage: Delayed Reflex Delay Time (seconds): 1 Decreased Laryngeal Elevation: No Reduced Velo-Pharyngeal Closure: no Reduced Pressure Generation: Yes - mild Reduced Tongue Base Retraction: No Pre-Swallowing Pooling in Valleculae: Mild - trace on thin Pre-Swallowing Pooling in Pyriforms: None Reduced Thyro-Hyiod Approximation: No Reduced Epiglottic Excursion: No Reduced Pharyngeal Peristalsis: No Multiple Swallows With: Effective Post Swallow Residuals in Valleculae: None Post Swallow Residuals in Pyriforms: Mild - mild on thin, mild-moderate on nectar - Esophageal Stage Cricophageal Function: Impaired - Impression/Summary Laryngeal Penetration: Yes, Deep - on large swallows of thin by cup and straw, flash penetration on nectar by spoon., Cleared, during swallow Tracheal Aspiration: no Risk of Aspiration: Mild - Recommendations NPO: no Solid Diet Recommendations: Regular Liquid Diet Recommendations: Thin Strict Aspitarion Precautions: Yes Dysphagia Therapy with FOURDRINIER OPERATOR: No Recommended Techniques: Fully Upright During Meal, Small Bites and Sips, Alternate Bites/Sips Supervision: requires assistance Other Recommendations: 1) DIET: recommend continued current diet. 2) STRATEGIES : alternate solids and liquids, dry swallow after liquids, small bites and sips. SUMMARY: Pt presents with impaired UES opening resulting in residuals of thin, nectar, and puree at the level of the valleculae. Alternating solids and liquids observed to clear residuals of puree. Dry swallow after thin liquids observed to clear residuals. Deep penetration observed on large cup sips of thin as well as with straw. Flash penetration observed on nectar. Increased residuals observed at the level of the valleculae on nectar. ST contacted MD regarding results and recommendations, MD verbalized understanding. ST to sign off at this time. - Time Total Time: 25 Total Timed Minutes: 0 ST F.L. Impairment Category - Rationale Based On Rationale Based On: Clin Find., Obj Measures - Swallowing Current G8996: CI 1-19% Impaired Goal G8997: CI 1-19% Impaired Discharge G8998: CI 1-19% Impaired
--- NOTE | 2017-02-13 09:28 | RADIOLOGY REPORT (SQ) ---
EXAM DESCRIPTION: NOHEMY SWALLOW COMPLETED DATE/TIME: 02/13/2017 8:56 am REASON FOR STUDY: DYSPHAGIA, UNSPECIFIED R 13.10, FOOD IN PHARYNX CAUSING OTHER INJURY, SEQUELA T1 7.228 S globus sensation COMPARISON: COOKIE SWALLOW 03/02/2014 TECHNIQUE: Videofluoroscopic swallowing examination was performed in conjunction with speech patholo gy. Videofluoroscopic imaging was obtained and reviewed and these are the findings: RADIATION DOSE: Total fluoroscopy time: 2.5 minutes 1 fluoroscopy image saved to PACS. LIMITATIONS: None FINDINGS: The patient was brought into the fluoro room and placed upright on a modified barium swall ow chair. The patient was then given multiple consistencies mixed with barium to swallow under live fluoroscopic video guidance. According to the Speech Pathologist there was deep laryngeal penetratio n with thin liquids. Moderate laryngeal penetration is noted with nectar consistencies. No tracheal aspiration is seen. No significant post swallow residual seen. Please see speech pathology report for further details and recommendations. IMPRESSION: LARYNGEAL PENETRATION WITH THIN AND NECTAR CONSISTENCIES ABOVE. NO TRACHEAL ASPIRATI ON.PLEASE SEE SPEECH PATHOLOGIST REPORT FOR OTHER FINDINGS AND RECOMMENDATIONS. COMMENT: Quality ID [id number]: Final reports for procedures using fluoroscopy that document radiation exp osure indices, or exposure time and number of fluorographic images (if radiation exposure indices are not available) TECHNICAL DOCUMENTATION: JOB ID: [id number] [employer]- All Rights Reserved
[2017-02-13] MEDS ORDERED: ONDANSETRON HCL INJ/PF 4 MG/2 ML SDV ONE (09:56)
[2017-02-13] MEDS: NORMAL SALINE 1000 ML 1,000 ML IV PRN (10:07)
[2017-02-13] MEDS: HEPARIN SOD (PORCINE) 5,000 UNIT/ML 1 ML SYRINGE SUBCUT SCH ×2 (10:08→21:36)
[2017-02-13] MEDS: DOCUSATE SODIUM 100 MG CAPSULE PO SCH ×2 (11:04→17:08)
[2017-02-13] MEDS: MEGESTROL ACETATE SUSP 400 MG/10 ML UDCUP PO SCH (11:04)
[2017-02-13] MEDS: AMLODIPINE BESYLATE 5 MG TABLET PO SCH (11:05)
[2017-02-13] MEDS: CLOPIDOGREL BISULFATE 75 MG TABLET PO SCH (11:05)
[2017-02-13] MEDS: ONDANSETRON 4 MG TAB.RAPDIS PO PRN (14:52)
[2017-02-13] MEDS ORDERED: METOCLOPRAMIDE HCL 10 MG TABLET PO ONE (17:00)
[2017-02-13] MEDS: ATORVASTATIN CALCIUM 40 MG TABLET PO SCH (21:35)
[2017-02-13] MEDS: MIRTAZAPINE 15 MG TABLET PO SCH (21:36)
[2017-02-14] MEDS: OXYCODONE HCL IR 5 MG TABLET PO PRN (01:00)
[2017-02-14 04:47] LABS: HEMATOCRIT 30.7 % (37.9-51.0); HEMOGLOBIN 10.7 g/dL (13.5-17.0); HGB HCT DIFFERENCE 1.4; MEAN CORPUSCULAR HEMOGLOBIN 32.2 pg (27.0-33.4); MEAN CORPUSCULAR HGB CONC 34.9 g/dL (32.0-36.0); MEAN CORPUSCULAR VOLUME 92 fl (80-97); RED BLOOD COUNT 3.33 10^6/uL (4.35-5.55); RED CELL DISTRIBUTION WIDTH 14.3 % (11.5-14.0); WHITE BLOOD COUNT 5.3 10^3/uL (4.0-10.5)
[2017-02-14] MEDS: LANSOPRAZOLE 30 MG TAB.RAP.DR PO SCH (05:09)
[2017-02-14] MEDS: BUTALB/ACETAMINOPHEN/CAFFEINE 1 TAB EACH PO SCH ×4 (05:09→23:15)
[2017-02-14 05:16] LABS: ANION GAP 6 (5-19); BLOOD UREA NITROGEN 10 mg/dL (7-20); CALCIUM 8.3 mg/dL (8.4-10.2); CARBON DIOXIDE 24 mmol/L (22-30); CHLORIDE 102 mmol/L (98-107); CREATININE RESULT 0.91 mg/dL (0.52-1.25); GLUCOSE 80 mg/dL (75-110); POTASSIUM 4.5 mmol/L (3.6-5.0); SODIUM 132.3 mmol/L (137-145)
--- NOTE | 2017-02-14 09:42 | PROGRESS NOTE E ---
Progress Note NAME: SHARON FUNEZ : 1925 AGE: 89Y DATE: 02/14/2017 ROOM: 428 SUBJECTIVE: The patient is lying in bed. He states that he is having some congestion this morning. The patient's son is concerned about the patient's ongoing confusion, stating that it has been "bad for a while now but things worsened in the last 3 weeks." I did explain how hyponatremia could be the source of this; however, will further investigate. The patient has been afebrile, his blood pressure has been in a good range, and the patient does not voice any other concerns at this time. REVIEW OF SYSTEMS: The rest of the review of systems is negative. MEDICATIONS: Medications have been reviewed. OBJECTIVE: GENERAL: The patient is an 89-year-old male who is awake, alert. He is oriented to person, place, time, and situation but delayed. He does not appear to be in any acute distress. VITAL SIGNS: As follows: Temperature is 98.5, pulse 58, respirations 16, blood pressure is 125/66, oxygen saturation is 97% on room air. SKIN: Warm and dry. No rash, not diaphoretic. HEENT: Pupils equal, round, and reactive to light and accommodation. Conjunctivae pink. No JVP. CARDIOVASCULAR: Heart is regular. There is no murmur or rub. CHEST: Clear, symmetrical, unlabored. ABDOMEN: Soft, nontender, nondistended. BACK: No CVA tenderness or sacral edema. EXTREMITIES: No clubbing, cyanosis, edema. PSYCHIATRIC: The patient is very easily agitated. DIAGNOSTICS: Lab values are as follows. Hematology obtained on 02/14/2017: WBCs are 5.3, hemoglobin is 10.7, hematocrit is 30.7, platelet count is 172,000. Chemistry obtained on 02/14/2017: Sodium is 132, potassium 4.5, chloride is 102, carbon dioxide 24, BUN 10, creatinine is 0.91, glucose 80, calcium is 8.3. IMPRESSION AND PLAN: 1. HYPONATREMIA, MOST LIKELY HYPOVOLEMIC HYPONATREMIA DUE TO POOR P.O. INTAKE. The patient has not been on any significant offending agents. Will continue his IV fluids today and encourage p.o. intake as it is improving. 2. POOR APPETITE. Will continue Remeron and Megace. This appears to have improved according to the family. Speech Therapy recommends GI consultation upon discharge. 3. ANEMIA, MOST LIKELY IRON DEFICIENCY FROM POOR P.O. INTAKE. Given the patient's mental status changes, will proceed with iron studies and follow. 4. HYPERTENSION. Blood pressures have been elevated. Will continue current blood pressure medications. It is improved. 5. CONSTIPATION. This resolved yesterday. 6. DVT PROPHYLAXIS. Will continue subcutaneous heparin. DISPOSITION: THE PATIENT IS A DNR/DNI. Pending the patient's symptomatology and diagnostic findings, will re-evaluate in the a.m. Time spent on this followup, including assessment/plan, physical examination, patient education, and family meeting, is 25 minutes. DICTATING PHYSICIAN: GARY MILLS NP [id number] PHY#: [id number] ID: [id number] JOB#: [id number] ACCT: [id number] cc: >
[2017-02-14] MEDS ORDERED: MAGNESIUM HYDROXIDE SUSP 30 ML UDCUP PO PRN (09:55)
[2017-02-14] MEDS: AMLODIPINE BESYLATE 5 MG TABLET PO SCH (10:47)
[2017-02-14] MEDS: DOCUSATE SODIUM 100 MG CAPSULE PO SCH ×2 (10:47→17:25)
[2017-02-14] MEDS: CLOPIDOGREL BISULFATE 75 MG TABLET PO SCH (10:47)
[2017-02-14] MEDS: MEGESTROL ACETATE SUSP 400 MG/10 ML UDCUP PO SCH (10:50)
[2017-02-14] MEDS: HEPARIN SOD (PORCINE) 5,000 UNIT/ML 1 ML SYRINGE SUBCUT SCH ×2 (10:51→21:43)
[2017-02-14] MEDS: FLUTICASONE NASAL SPRAY 50 MCG/SPRY 120 SPRAY/16 GM NASL SCH ×2 (11:09→21:43)
[2017-02-14] MEDS: ONDANSETRON 4 MG TAB.RAPDIS PO PRN (11:09)
[2017-02-14] MEDS: NORMAL SALINE 1000 ML 1,000 ML IV PRN (12:53)
[2017-02-14] MEDS: ATORVASTATIN CALCIUM 40 MG TABLET PO SCH (21:39)
[2017-02-14] MEDS: MIRTAZAPINE 15 MG TABLET PO SCH (21:42)
[2017-02-14] MEDS ORDERED: ZOLPIDEM TARTRATE 5 MG TABLET PO ONE (22:00)
[2017-02-15] MEDS: NORMAL SALINE 1000 ML 1,000 ML IV PRN (00:33)
[2017-02-15 04:42] LABS: ANION GAP 9 (5-19); BLOOD UREA NITROGEN 14 mg/dL (7-20); CARBON DIOXIDE 23 mmol/L (22-30); CHLORIDE 104 mmol/L (98-107); GLUCOSE 88 mg/dL (75-110); MAGNESIUM 2.2 mg/dL (1.6-2.3); POTASSIUM 4.8 mmol/L (3.6-5.0); SODIUM 136.2 mmol/L (137-145)
[2017-02-15] MEDS: LANSOPRAZOLE 30 MG TAB.RAP.DR PO SCH (06:48)
[2017-02-15] MEDS: BUTALB/ACETAMINOPHEN/CAFFEINE 1 TAB EACH PO SCH ×2 (06:48→11:34)
[2017-02-15 07:51] VITALS: BP 165/81
[2017-02-15] MEDS: AMLODIPINE BESYLATE 5 MG TABLET PO SCH (09:16)
[2017-02-15] MEDS: DOCUSATE SODIUM 100 MG CAPSULE PO SCH (09:19)
[2017-02-15] MEDS: CLOPIDOGREL BISULFATE 75 MG TABLET PO SCH (09:19)
[2017-02-15] MEDS: HEPARIN SOD (PORCINE) 5,000 UNIT/ML 1 ML SYRINGE SUBCUT SCH (09:20)
--- NOTE | 2017-02-15 09:27 | DISCHARGE SUMMARY E ---
Discharge Summary NAME: SHARON FUNEZ : 1925 AGE: 89Y ADMITTED: 02/12/2017 DISCHARGED: 02/15/2017 CODE STATUS: DO NOT RESUSCITATE, DO NOT INTUBATE. PRIMARY CARE PROVIDER: Dr. Hopper DISCHARGE DIAGNOSES INCLUDE: 1. Hypovolemic hyponatremia. 2. Poor appetite which has improved. 3. Normocytic anemia. 4. Hypertension. 5. Constipation. 6. Vascular dementia. 7. Dysphagia. DISCHARGE MEDICATIONS INCLUDE: 1. Megace 400 mg p.o. daily, 300 mL with 0 refills. 2. Remeron 7.5 mg p.o. at hour of sleep, 30 tablets with 0 refills. 3. Omeprazole 40 mg p.o. daily. 4. Plavix 75 mg p.o. daily. 5. Fioricet 1 tablet p.o. every 6 hours p.r.n. 6. Atorvastatin 40 mg p.o. at hour of sleep. DIET: As tolerated. ACTIVITY: Will have home health physical therapy. DIAGNOSTICS: Lab values are as follows. Hematology obtained on 02/14/2017: WBCs are 5.3, hemoglobin is 10.7, hematocrit is 30.7, platelet count is 172,000. Chemistry obtained on 02/15/2017: Sodium is 136, potassium 4.8, chloride is 104, carbon dioxide 23, BUN 14, creatinine 1.1, glucose 88, serum osmolality is 264, calcium is 9, magnesium is 2.2. Iron is 72, TIBC is 284, percent saturation is 25, transferrin is 188, ferritin is 40.6, B12 is 534, folate is 10.3. TSH is 1.07. Total bilirubin is 0.5, AST 24, ALT is 22, alk phos 132, total protein 6.1, albumin 3.4. Troponin 0.012. Urinalysis obtained on 02/12/2017: Color light yellow, appearance clear, pH 7.0, specific gravity 1.002, protein negative, glucose negative, ketones negative, occult blood negative, nitrite negative, bilirubin negative, urobilinogen is negative, leukocyte esterase is negative, WBCs 0, urine osmolality 129, sodium 37, ascorbic acid is negative. Head CT obtained on 02/11/2017 reveals chronic changes of atrophy and microvascular ischemia, no acute process. Modified barium swallow obtained on 02/13/2017: Laryngeal penetration was seen in nectar consistencies. No tracheal aspiration. Recommendations for GI evaluation. EKG obtained on 02/12/2017 is sinus rhythm with PVCs. EKG on 02/12/2017 reveals sinus rhythm. PHYSICAL EXAMINATION: GENERAL: On examination, the patient is a well-developed, reasonably nourished 89-year-old male who is awake, alert. He is oriented to person, place, time, and situation, a little delayed, does not appear to be in any acute distress. VITAL SIGNS: As follows: Temperature is 98.5, pulse 58, respirations 17, blood pressure is 147/71, oxygen saturation is 100% on room air. SKIN: Warm and dry. No rash. He is not diaphoretic. HEENT: Pupils equal, round, and reactive to light and accommodation. Conjunctivae pink. No JVP. CARDIOVASCULAR: Heart is regular. There is no murmur or rub. CHEST: Clear, symmetrical, unlabored. ABDOMEN: Soft, nontender, nondistended. BACK: No CVA tenderness or sacral edema. EXTREMITIES: No clubbing, cyanosis, edema. PSYCHIATRIC: Appropriate affect. Pleasant mood. HISTORY OF PRESENT ILLNESS: The patient is an 89-year-old male with a past medical history of chronic migraines and coronary artery disease. The patient presented to the emergency department with a chief complaint of nausea and headache. The patient apparently fell backwards at his house last Saturday and was seen at a medical facility afterwards, and CT of the neck showed no obvious injury. Since that time the patient has had problems with constipation. Over the past 3 months the patient has had ever increasing confusion as well as loss of appetite. Family correlates this possibly with Aricept and also notes some personality changes and increased agitation. Upon presentation to the emergency department the patient's sodium was found to be 120 and the patient was not having much oral intake at all. Given these findings, the patient was referred to the hospitalist for admission and management. HOSPITAL COURSE: The patient was admitted to a continuous telemetry unit. The patient was gently hydrated and the patient's sodium improved from 120 to 136 over a 5-day period as the patient was gently hydrated. The patient was started on Megace and Remeron for appetite and sleep, for which the patient has had much improvement. The patient almost has a ravenous appetite at this point. Family is pleased with these results. The patient's Aricept was stopped due to concerns for possible agitation and GI complications. The patient had noted constipation. This was relieved with Dulcolax and an oral cathartic. The patient also complained of issues with swallowing, which this appears to have been an issue dating back to even 2011 when the patient was seen by ENT. The patient was seen by Speech Therapy during this stay and a modified barium swallow was done. The patient did not have any issues; however, the study correlated with his previous study years ago which suggested distal esophageal motility issues and recommended GI evaluation. According to the patient and family, the patient has not been evaluated by Gastroenterology for this and will be done on an outpatient basis. DISCHARGE PLANNIN. The patient is advised to follow up with primary care provider within 2 weeks for hospital followup. 2. The patient will be referred to Dr. Wilkes for GI evaluation of dysphagia. Time spent on this discharge, including assessment/plan, physical examination, patient education, family meeting, and resource alignment, is 25 minutes. DICTATING PHYSICIAN: GARY MILLS NP [id number] Y#: [id number] ID: [id number] JOB#: [id number] ACCT: [id number] cc:CARON CHAVEZ M.D. GARY MILLS NP >
[2017-02-15] MEDS: ONDANSETRON 4 MG TAB.RAPDIS PO PRN (09:46)
[2017-02-15] MEDS: FLUTICASONE NASAL SPRAY 50 MCG/SPRY 120 SPRAY/16 GM NASL SCH (09:47)
[2017-02-15] MEDS: MEGESTROL ACETATE SUSP 400 MG/10 ML UDCUP PO SCH (09:52)
== END 2017-02-15 12:17 | disposition home health service (06) | DRG 641 ==
LOC: ER 18:57 → EH 23:52 → UNDOADMOB 23:52 → EH 02-12 01:31 → 4S 02-12 02:44 → OBSVTOIN 02-12 09:24
PROVIDERS: ADMIT Family Medicine; ATTEND Family Medicine
DX: E87.1 Hypo-osmolality and hyponatremia (principal); D50.9 Iron deficiency anemia, unspecified; I10 Essential (primary) hypertension; K59.00 Constipation, unspecified; F01.50 Vascular dementia, unspecified severity, without behavioral disturbance, psychotic disturbance, mood disturbance, and anxiety; R13.10 Dysphagia, unspecified; Z66 Do not resuscitate; I25.10 Atherosclerotic heart disease of native coronary artery without angina pectoris; K21.9 Gastro-esophageal reflux disease without esophagitis; M19.90 Unspecified osteoarthritis, unspecified site; F32.9 Major depressive disorder, single episode, unspecified; F41.1 Generalized anxiety disorder; Z79.899 Other long term (current) drug therapy; Z79.02 Long term (current) use of antithrombotics/antiplatelets; Z95.5 Presence of coronary angioplasty implant and graft
CPT/HCPCS: 36415; 70450; 74230; 80048; 80076; 81001; 82607; 82728; 82746; 83540; 83550; 83735; 83930; 83935; 84300; 84443; 84466; 84484; 85025; 85027; 85045; 93005; 93010; 99291; G0378; G8978-GP; G8979-GP; G8996-GN; G8997-GN; G8998-GN; J1644; J2405; J3490; J7030; J7060; S0119

== ENCOUNTER → 2017-05-24 | Outpatient (CLI) | payer MEDICARE, BC ==
[2017-05-24 17:54] LABS: HEMATOCRIT 32.6 % (37.9-51.0); HEMOGLOBIN 11.3 g/dL (13.5-17.0); HGB HCT DIFFERENCE 1.3; MEAN CORPUSCULAR HEMOGLOBIN 30.7 pg (27.0-33.4); MEAN CORPUSCULAR HGB CONC 34.7 g/dL (32.0-36.0); MEAN CORPUSCULAR VOLUME 88 fl (80-97); RED BLOOD COUNT 3.69 10^6/uL (4.35-5.55); RED CELL DISTRIBUTION WIDTH 14.3 % (11.5-14.0); WHITE BLOOD COUNT 7.4 10^3/uL (4.0-10.5)
[2017-05-24 18:38] LABS: ALANINE AMINOTRANSFERASE 21 U/L (21-72); ALBUMIN 3.3 g/dL (3.5-5.0); ALKALINE PHOSPHATASE 131 U/L (38-126); ANION GAP 8 (5-19); ASPARTATE AMINO TRANSFERASE 17 U/L (17-59); BILIRUBIN,DIRECT 0.3 mg/dL (0.0-0.4); BILIRUBIN,TOTAL 0.4 mg/dL (0.2-1.3); BLOOD UREA NITROGEN 24 mg/dL (7-20); CALCIUM 8.4 mg/dL (8.4-10.2); CARBON DIOXIDE 26 mmol/L (22-30); CHLORIDE 104 mmol/L (98-107); CREATININE RESULT 1.28 mg/dL (0.52-1.25); GLUCOSE 70 mg/dL (75-110); POTASSIUM 4.3 mmol/L (3.6-5.0); SODIUM 138.1 mmol/L (137-145); TOTAL PROTEIN 5.9 g/dL (6.3-8.2)
== END ==
LOC: OD 16:16
PROVIDERS: ATTEND Family Medicine
DX: E55.9 Vitamin D deficiency, unspecified (principal); I10 Essential (primary) hypertension; I25.10 Atherosclerotic heart disease of native coronary artery without angina pectoris; M25.571 Pain in right ankle and joints of right foot
CPT/HCPCS: 36415; 80053; 82306; 85027